=== PATIENT | male | born 1940 | race Caucasian/White ===

== ENCOUNTER → 2023-11-07 14:12 | Outpatient (REF) | payer MEDICARE, BC, SELFPAY | LOC: HWRCS 14:12 | PROVIDERS: ATTENDING PHYSICIAN Internal Medicine Cardiovascular Disease; FAMILY PHYSICIAN Family Medicine | DX: I35.0 Nonrheumatic aortic (valve) stenosis (principal) | CPT/HCPCS: 93306 ==

== ENCOUNTER → 2023-12-18 13:48 | Outpatient (REF) | payer MEDICARE, BC, SELFPAY | LOC: HWRAD 13:48 | PROVIDERS: ATTENDING PHYSICIAN Family Medicine | DX: Z86.73 Personal history of transient ischemic attack (TIA), and cerebral infarction without residual deficits (principal); M72.2 Plantar fascial fibromatosis; H55.00 Unspecified nystagmus | CPT/HCPCS: 70496; 70498; Q9967 ==

== ENCOUNTER → 2024-05-22 10:21 | Day surgery (SDC) | payer MEDICARE, BC, SELFPAY ==
[2024-05-22 11:39] LABS: Hematocrit 45.8 % (39.0-52.0); Hemoglobin 15.5 g/dL (13.0-18.0); Mean Corp Hgb Conc. 33.8 g/dL (33.0-37.0); Mean Corpuscular Hgb 31.1 pg (27.0-31.0); Mean Platelet Volume 10.4 fL (7.4-10.4); Platelet Count 160 10^3/uL (130-400); Red Blood Cell Count 4.98 10^6/uL (4.70-6.10); Red Cell Dist. Width 13.5 % (11.5-14.5); White Blood Cell Count 6.8 10^3/uL (4.8-10.8)
[2024-05-22 12:38] LABS: Blood Urea Nitrogen 23 mg/dl (9-20); Calcium 9.7 mg/dl (8.4-10.2); Carbon Dioxide 30 mmol/L (22-30); Chloride 99 mmol/L (98-107); Glucose 91 mg/dl (70-99); Potassium 4.5 mmol/L (3.5-5.1); Sodium 140 mmol/L (135-145); eGFR > 60.00
== END ==
LOC: SDSPAT 10:21
PROVIDERS: ATTENDING PHYSICIAN Specialist; FAMILY PHYSICIAN Family Medicine
DX: Z01.812 Encounter for preprocedural laboratory examination (principal)
CPT/HCPCS: 85027; 36415; 80048

== ENCOUNTER 2024-05-30 06:05 | Day surgery (SDC) | payer MEDICARE, BC, SELFPAY ==
[2024-05-22 11:16] VITALS: BMI 31.3
[2024-05-30] VITALS (12 sets, daily range): BP systolic 125–183; BP diastolic 57–96; BMI 31.3
[2024-05-30] MEDS: CYSVIEW KIT 100 MG INTRAVES (06:12)
[2024-05-30] MEDS: SYRINGE NON-PUMP 50 ML IRRIG ×2 (08:45→08:46)
[2024-05-30] MEDS: SYRINGE NON-PUMP 50 MG IRRIG ×2 (08:45→08:46)
[2024-05-30] MEDS: DILAUDID 0.25 MG IV (09:31)
--- NOTE | 2024-05-30 11:18 | PTCARENOTE ---
Patient did not want help getting dressed. He refused assistance and wanted to stand on his own. Patient voided on the floor when arriving when he stood to get OOB. Patient then urinated into the urinal blood/pink tinged urine. Patient cleaned up
and then he dressed.
== END 2024-05-30 11:15 | disposition home or self-care (01) ==
LOC: SDS 06:05
PROVIDERS: ATTENDING PHYSICIAN Specialist
DX: C67.9 Malignant neoplasm of bladder, unspecified (principal)
CPT/HCPCS: 52235; C9738; 88307; J1580; J9201

== ENCOUNTER 2024-05-31 04:29 | Observation (INO) | payer MEDICARE, BC, SELFPAY ==
[2024-05-30 21:33] VITALS: BP 192/92
--- NOTE | 2024-05-30 23:03 | ED.GENMED ---
History of Present Illness
General
Chief Complaint: Urinary Symptoms
Source: patient
Exam Limitations: none
Time Seen by Provider: 05/30/24 22:49
History of Present Illness
History of Present Illness:
This is a 83 year old male that comes in with c/o not being able to void. States that he had a TURP today and he was discharged around 11:30am. States that they had trouble getting the catheter out as they felt it was blocked by a clot. States that
he went home and he was urinating and passing clots. States that before he came in he was unable to urinate and nothing came out. States that he has been drinking fluid. States that he has abd pain and urinary burning. Denies any fever, chills,
chest pain, SOB, nausea, vomiting, diarrhea, headache, dizziness.
Past History
Past History
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
ED Past Surgical History: Appendectomy, Orthopedic (Right and left knee surgery. Laminectomy, ), Tonsilectomy, Urological (TURP, Radical prostatectomy) and Other (Hernia repair Umbilical and inguinal, cataract surgery, )
Social History
Tobacco: Former smoker
Alcohol: None
Drug: None
Personal:
Living: alone
Review of Systems
Review of Systems
All Other Systems: ROS reviewed and negative except as documented in HPI and ROS
Constitutional: Reports no symptoms; Denies fever or chills
EENT: Reports no symptoms
Respiratory: Reports no symptoms; Denies cough or trouble breathing
Cardiac: Reports no symptoms; Denies chest pain
ABD/GI: Reports abdominal pain (Lower abd); Denies nausea, vomiting or diarrhea
: Reports dysuria, difficulty voiding and other (Bladder spasm)
Musculoskeletal: Reports no symptoms
Skin: Reports no symptoms
Neurological: Reports no symptoms; Denies dizzy or headache
Psychiatric: Reports no symptoms
Phy Exam
General Physical Exam
General Presentation: mild distress
General age: appears stated age
General Skin: warm and dry
General Habitus: elderly
General Mental: alert
General Hydration: appears well hydrated
ENT Exam
ENT Exam: pharynx normal and neck supple
Eye Exam
Eye Exam: EOMI
Cardiovascular Exam
Cardiovascular Exam: regular rate/rhythm, no edema, normal peripheral pulses and other (Murmur)
Pulmonary Exam
Pulmonary Exam: lungs clear, no respiratory distress, no rales, chest non tender, no crackles, no rhonchi, no wheezing and no cough
Gastrointestinal Exam
Gastrointestinal Exam: normal bowel sounds, soft, no organomegaly, no pulsatile mass, non distended and tender (Lower abd tenderness with palpation)
Musculoskeletal Exam
Musculoskeletal Exam: full ROM and no edema
Skin Exam
Skin Exam: normal color, warm/dry, no rash and no petechia
Psychiatric Exam
Psychiatric Exam: normal mood/affect
Course
Orders/Labs/Results
Orders:
Orders
05/30/24 23:02
Catheter [Dickinson Placement- Treatment] ONCE
Reason for insertion: Outlet obstruction
05/30/24 23:05
Acetaminophen [Tylenol] 1,000 mg PO NOW STA
Phenazopyridine HCl [Pyridium] 200 mg PO NOW STA
05/30/24 23:54
Complete Blood Count/With Diff Urgent
Comprehensive Metabolic Panel Urgent
Urinalysis Reflex To Culture Urgent
Date Specimen was Collected: 05/30/24
Time Specimen was Collected: 23:47
Urine Microscopic Reflex Cult Urgent
05/31/24 00:47
0.9% Sodium Chloride 1000 ml [Nss] 1,000 ml IV BOLUS
05/31/24 01:59
CBI- Treatment PRN
Solution: NSs
Irrigate to Clear?: Yes
05/31/24 02:04
Consult Urology [UROLOGY CONSULT] Urgent
Consulting Provider: Pedro Lord
Was physician already notified: Yes
Abnormal Lab Results
05/30/24
23:54
Absolute Neuts (auto) 8.3 H 10^3/uL
(1.4-6.5)
Absolute Lymphs (auto) 1.0 L 10^3/uL
(1.2-3.4)
Absolute Monos (auto) 0.8 H 10^3/uL
(0.1-0.6)
Neutrophils % 81.8 H %
(42.2-75.2)
Lymphocytes % 9.5 L %
(20.5-51.1)
Sodium 130 L mmol/L
(135-145)
Chloride 95 L mmol/L
(98-107)
BUN 27 H mg/dl
(9-20)
Glucose 117 H mg/dl
(70-99)
Ur Occult Blood Reflex 4+ A
(Negative)
Leukocyte Esterase Rfl Trace A
(Negative)
Urine RBC >100 A /HPF
(0-2)
Urine Bacteria (Reflex) Few A
(Negative)
Urine Albumin (Reflex) 3+ A
(Neg - Trace)
05/30/24 23:54
05/30/24 23:54
Slight Hyponatremia, chloride low. dehydration. Glucose nonfasting, Urine negative for infection.
Vital Signs
Initial and Last Documented VS:
Initial Vital Signs
Temp Pulse Resp BP Pulse Ox
98.2 F 91 20 192/92 97
05/30/24 21:33 05/30/24 21:33 05/30/24 21:33 05/30/24 21:33 05/30/24 21:33
Last Documented Vital Signs
Temp Pulse Resp BP Pulse Ox
98.2 F 91 20 146/86 99
05/30/24 21:33 05/31/24 01:07 05/31/24 01:07 05/31/24 01:07 05/31/24 01:07
MDM/Problems Addressed
Differential Diagnosis Includes:
Urinary retention, UTI, Hematuria
MDM/Problems Addressed:
This is a 83 year old male that comes in with c/o not being able to urinate. States that he had a TURP today and they had difficulty getting the catheter out. States that they felt it was from a blood clot. Patient was urinating at home and then the
past 2 times has not been able to urinate at all.
Will place Three way catheter and check urine and labs.
Back into see patient. Patient has andrei blood in catheter. Will start on CBI and admit patient. Will place Urologist Consult. Hospitalist notified.
Chronic conditions affecting care: Cancer (Prostate Cancer)
Acute Exacerbation and/or Progression of Chronic Illness: Cancer (Prostate cancer)
*Pulse Oximetry
Patient hypoxic: no
*EKG
Interpreted by ED Provider?: NA
Rate: EKG- N/A
*Manager Client Interpretation
Rate: Manager Client- N/A
*Critical Care Note
Total Time (30-74mins, 75-104mins- exclusive of procedures): Not Applicable
ED Attending Note
-
Portions of this chart may have been created with voice recognition software.� Occasional wrong word or��sound alike� substitutions may have occurred due to the inherent limitations of voice recognition software.
Discharge Plan
Departure
Patient Disposition: Admit
Date of Disposition: 05/31/24
Time of Disposition: 02:05
Admit to: Med/Surg
Presentation/result/management discussed w/ accepting MD/DO: Hospitalist
Patient with high blood pressure during this ER visit?: Yes
Condition: Good
Covid-19: Not Applicable
Discharge Problem:
Hematuria
Prescriptions:
No Action
multivitamin 1 EACH tablet
4 ea PO DAILY
L.acidoph, paracasei,B. lactis 1 EACH capsule
1 ea PO DAILY
Rx Instructions:
70 billion
Cholest Off Plus
900 mg PO DAILY
Curcumin
500 mg PO QTUTHSU
Elderberry Fruit and Flower
3.8 g PO DAILY
Lycopene
10 mg PO HS
[place] Eye Support
64 mg PO DAILY
zinc 15 MG tablet
1 tab PO HS
Patient Comments:
with seliumn
cod liver oil 1 EACH capsule
2 ea PO HS
K2 Plus D3 1 EACH tablet
5 ea PO DAILY
Rx Instructions:
D3- 1000 units, K2-45mcg
Chlorella
970 mg PO HS
Full Spectum Enzyme
1 tab PO HS
Purple Defence
450 mg PO DAILY
Ubiquinol
100 mg PO HS
sennosides [senna] 8.6 mg Tablet
17.2 mg PO DAILY PRN (Reason: constipation)
vitamin B complex Tablet
1 tab PO DAILY
betamethasone dipropionate 0.05 % Ointment
1 applic TOPICAL PRN PRN (Reason: eczema chest, arms, back)
docusate sodium 100 mg Tablet
200 mg PO PRN PRN (Reason: constipation)
krill oil 500 mg Capsule
1,000 mg PO DAILY
[place] 3-6-9 1,200 mg Capsule
1 cap PO HS
Eye Support
1 tab PO HS
Seven Joint Support
1 tab PO HS
collagen
40 mg PO HS
glucosamine-chondroitin
3,000 mg PO DAILY
polyethylene glycol 3350 [Miralax] 17 gram/dose powder
4 g PO DAILY PRN (Reason: Constipation) Qty: 119 0RF
triamcinolone acetonide 0.1 % Cream
1 applic TOPICAL DAILY
aspirin 81 mg Tablet,Chewable
81 mg PO DAILY
lisinopril 5 mg Tablet
5 mg PO HS
Patient Comments:
3 days per week
lisinopril 2.5 mg Tablet
2.5 mg PO HS
Patient Comments:
4days per week
cholecalciferol (vitamin D3) [Vitamin D3] 25 mcg (1,000 unit) Capsule
25 mcg PO HS
rosuvastatin 20 mg Tablet
20 mg PO DAILY
magnesium L-threonate 48 mg magnesium (667 mg) Capsule
1 mg PO DAILY
Bosweilla
125 mg PO HS
Referrals:
UNKNOWN - PT DOES,NOT KNOW [Family Provider] -
Interventions
Interventions:
*Risk Screen - Suicide Last Done: 05/30/24 21:33
*General Assessment Last Done: 05/30/24 21:33
*Neglect/Abuse Screening Last Done: 05/31/24 00:32
*ED COVID-19 Vaccine History Last Done: 05/30/24 21:33
ED-Male Genitourinary Assessment Last Done: 05/31/24 00:32
Discharge Date and Time
Print Language: CROATIAN
[2024-05-30] MEDS: Pyridium 200 MG PO (23:14)
[2024-05-30] MEDS: TYLENOL 1000 MG PO (23:16)
[2024-05-31 00:08] LABS: % Basophils 0.3 % (0-2); % Eosinophils 0.1 % (0-6); % Immature Granulocytes 0.2 % (0-0.5); % Lymphocytes 9.5 % (20.5-51.1); % Monocytes 8.1 % (1.7-9.3); % Neutrophils 81.8 % (42.2-75.2); Absolute Monocytes 0.8 10^3/uL (0.1-0.6); Absolute Neutrophils 8.3 10^3/uL (1.4-6.5); Hematocrit 42.3 % (39.0-52.0); Hemoglobin 14.6 g/dL (13.0-18.0); Mean Corp Hgb Conc. 34.5 g/dL (33.0-37.0); Mean Corpuscular Hgb 30.7 pg (27.0-31.0); Mean Corpuscular Volume 88.9 fL (80.0-94.0); Mean Platelet Volume 9.7 fL (7.4-10.4); Nucleated Red Blood Cells % 0 % (-); Platelet Count 173 10^3/uL (130-400); Red Blood Cell Count 4.76 10^6/uL (4.70-6.10); Red Cell Dist. Width 13.2 % (11.5-14.5); White Blood Cell Count 10.2 10^3/uL (4.8-10.8)
[2024-05-31 00:31] LABS: ALT (SGPT) 22 U/L (0-50); AST (SGOT) 31 U/L (17-59); Alkaline Phosphatase 59 U/L (38-126); Blood Urea Nitrogen 27 mg/dl (9-20); Calcium 9.1 mg/dl (8.4-10.2); Carbon Dioxide 24 mmol/L (22-30); Chloride 95 mmol/L (98-107); Glucose 117 mg/dl (70-99); Potassium 4.7 mmol/L (3.5-5.1); Sodium 130 mmol/L (135-145); Total Bilirubin 0.5 mg/dl (0.2-1.3); Total Protein 6.5 g/dl (6.3-8.2); eGFR > 60.00
[2024-05-31 00:50] LABS: Urine Albumin 3+ (Neg - Trace); Urine Bilirubin Negative (Negative); Urine Character Very Cloudy (Clear); Urine Color Red; Urine Glucose Negative (Negative); Urine Ketone Negative (Negative); Urine Leukocyte Trace (Negative); Urine Nitrite Negative (Negative); Urine Occult Blood 4+ (Negative); Urine Urobilinogen Negative (Neg - 1+); Urine pH 6.5 (5.0-9.0)
[2024-05-31] MEDS: NSS 1000 IV (01:05)
[2024-05-31 01:07] VITALS: BP 146/86
[2024-05-31 02:20] LABS: Urine Bacteria Few (Negative); Urine Red Blood Cell >100 /HPF (0-2)
[2024-05-31 03:27] VITALS: BP 161/78
--- NOTE | 2024-05-31 04:37 | HPS.HSE ---
Family Physician
-
Family Physician: NOT KNOW UNKNOWN - PT DOES
Chief Complaint
-
Urinary hesitancy and gross hematuria
History of Present Illness
This is an 83-year-old who has a past medical history significant for prostate cancer many years ago status post TURP, history of remote recent diagnosis of bladder cancer status post TURBT last year and recent cystoscopy resulting in another TURBT
yesterday now presenting to the emergency department with hesitancy and hematuria after the TURBT.
Patient had the procedure done in the morning. At the end of procedure he reported that there was difficulty with extraction of the maite with apparent clot in the way. Ultimately the Dixon was extracted and patient was discharged to home. He
initially was able to urinate on his own but noted that he passed some clots. Thereafter he reported that he started having more urgency without actually passing urine. He then developed severe low pelvic and urethral pain which brought him to the
emergency department. He denied having any fevers or chills nausea vomiting or diaphoresis.
In the emergency department he attempted to urinate and felt like there was clot in the way. He was noted to have hematuria and a urinary cath was placed with CBI. With manual flushing clot was extracted and the patient pain resolved almost
immediately. When I saw the patient he was pain-free and passing clear urine via the CBI.
He was afebrile, blood pressure was 161/78 with normal pulse. Sodium was 130 with the rest of the chemistries unremarkable. CBC was unremarkable. UA with hematuria and some pyuria.
Medical History
Past Medical History
Past Medical History: Reports Cancer (Prostate cancer status post TURP, bladder cancer status post TURBT x 2), HTN and Hypercholesterolemia
Past Surgical History: Reports Urological and Other (Hernia repair)
Social History
Tobacco: Non-smoker
Alcohol: None
Drug: None
Personal: Single
Living: With Family
Employment: Retired
Family History
Family History: Not pertinent
Allergies / Home Medications
Allergies reflects when Allergies were last updated in [facility].
Home Medications with original date entered in [facility]
Allergy/Medication List:
Allergies
Allergy/AdvReac Type Severity Reaction Status Date / Time
adhesive tape Allergy takes skin Verified 05/30/24 21:33
off
budesonide Allergy elevated Verified 05/30/24 21:33
eosinophils
cephalexin Allergy Rash Verified 05/30/24:
clindamycin Allergy elevated Verified 05/30/24:33
eosinophils
clobetasol Allergy Rash Verified 05/30/24:33
desonide Allergy elevated Verified 05/30/24:
eosinophils
latex Allergy Rash Verified 05/30/24:33
levofloxacin Allergy Swelling Verified 05/30/24:33
levothyroxine sodium Allergy dizzy, Verified 05/30/24:33
[From Synthroid] blurred
vision and
low urine
output
losartan Allergy Shortness Verified 05/30/24 21:33
of Breath
minocycline Allergy elevated Verified 05/30/24:33
eosinophils
pesticide Allergy Rash Verified 05/30/24:33
prednisone Allergy dizziness Verified 05/30/24:33
and
lightheaded
rubber, unspecified Allergy Rash Verified 05/30/24:33
silver Allergy Blisters Verified 05/30/24:33
[From Tegaderm AG Mesh]
sulfamethoxazole Allergy neck Verified 05/30/24 21:33
[From Bactrim] stiffness
tramadol Allergy finger Verified 05/30/24 21:33
blistering,
itching
trimethoprim [From Bactrim] Allergy neck Verified 05/30/24 21:33
stiffness
flucocinonise Allergy elevated Uncoded 05/30/24 21:33
eosinophils
Home Medications
Chlorella 970 mg PO HS 10/03/21
Cholest Off Plus 900 mg PO DAILY 10/03/21
Curcumin 500 mg PO QTUTHSU 10/03/21
Elderberry Fruit and Flower 3.8 g PO DAILY 10/03/21
Full Spectum Enzyme 1 tab PO HS 10/03/21
L.acidoph, paracasei,B. lactis 10 billion cell capsule 1 ea PO DAILY 10/03/21
Lycopene 10 mg PO HS 10/03/21
Mercola Eye Support 64 mg PO DAILY 10/03/21
Purple Defence 450 mg PO DAILY 10/03/21
Ubiquinol 100 mg PO HS 10/03/21
cholecalciferol (vit D3) 1,000 unit-vitamin K2 (MK4) 100 mcg tablet (K2 Plus D3) 5 ea PO DAILY 10/03/21
multivitamin 4 ea PO DAILY 10/03/21
omega-3 240 [id number]-moj-cod liver oil 1,000 mg-vit A-vit D3 capsule (cod liver oil) 2 ea PO HS 10/03/21
zinc 15 mg tablet 1 tab PO HS 10/03/21
Eye Support 1 tab PO HS 05/01/23
Seven Joint Support 1 tab PO HS 05/01/23
betamethasone dipropionate 0.05 % topical ointment 1 applic topical PRN PRN eczema chest, arms, back 05/01/23
collagen 40 mg PO HS 05/01/23
docusate sodium 100 mg tablet 200 mg PO PRN PRN constipation 05/01/23
fish, borage, flaxseed oils-omega 3,6,9 comb no.1 1,200 mg capsule ([place] 3-6-9) 1 cap PO HS 05/01/23
glucosamine-chondroitin 3,000 mg PO DAILY 05/01/23
krill oil 500 mg capsule 1,000 mg PO DAILY 05/01/23
sennosides 8.6 mg tablet (senna) 17.2 mg PO DAILY PRN constipation 05/01/23
vitamin B complex 1 tab PO DAILY 05/01/23
polyethylene glycol 3350 17 gram/dose oral powder (Miralax) 4 g PO DAILY PRN Constipation #119 grams 05/04/23
Bosweilla 125 mg PO HS 05/26/24
aspirin 81 mg chewable tablet 81 mg PO DAILY 05/26/24
cholecalciferol (vitamin D3) 25 mcg (1,000 unit) capsule (Vitamin D3) 25 mcg PO HS 05/26/24
lisinopril 2.5 mg tablet 2.5 mg PO HS 05/26/24
lisinopril 5 mg tablet 5 mg PO HS 05/26/24
magnesium L-threonate 48 mg magnesium (667 mg) capsule 1 mg PO DAILY 05/26/24
rosuvastatin 20 mg tablet 20 mg PO DAILY 05/26/24
triamcinolone acetonide 0.1 % topical cream 1 applic topical DAILY 05/26/24
Review of Systems
-
History Source: Patient
Constitutional: Reports No Symptoms
EENT: Reports No Symptoms
Respiratory: Reports No Symptoms
Cardiac: Reports No Symptoms
Abdomen/GI: Reports No Symptoms
: Reports Urgency and Bleeding
Musculoskeletal: Reports No Symptoms
Skin: Reports No Symptoms
Neurological: Reports No Symptoms
Endocrine: Reports No Symptoms
Hematologic/Lymphatic: Reports No Symptoms
Psych: Reports No Symptoms
Physical Exam
Vital Signs
Vital Signs
Temp Pulse Resp BP Pulse Ox
97.5 F 68 16 161/78 94
05/31/24 03:27 05/31/24 03:27 05/31/24 03:27 05/31/24 03:27 05/31/24 03:27
Physical Exam
General: Well Developed, Well Nourished, Comfortable and Conversant
HEENT: NormoCephalic, Anicteric, Moist mucous membranes and Atraumatic
Respiratory: Clear
Cardiac: S1/S2 and Regular Rhythm
Breast: Deferred by me
GI: Soft, Non Tender, Non Distended and Normal Bowel Sounds
Rectal: Deferred by Provider
Genito-urinary: Clear Urine and Continuous Bladder Irrigation
Musculoskeletal: No Clubbing, No Cyanosis and No Edema
Skin: Warm
Neuro: AO x 3
Hematologic/Lymphatic: No Lymphadenopathy
Psych: Calm
Laboratory Results
-
05/30/24 23:54
05/30/24 23:54
Laboratory Results
Total Bilirubin 0.5 mg/dl (0.2-1.3) 05/30/24 23:54
AST 31 U/L (17-59) 05/30/24 23:54
ALT 22 U/L (0-50) 05/30/24 23:54
Alkaline Phosphatase 59 U/L (38-126) 05/30/24 23:54
Data Reviewed
-
Lab Data: Labs Reviewed by me
Old Records: Reviewed
Impression/Plan
-
IMPRESSION:
83 Male with prostate Ca s/p TURBT yesterday developed hematuria with clots and transient urinary obstruction. Now appears cleared after dixon insertion, flushing and CBI. The output from the bladder is now clear (colored by pyridium). Patient
comfortable.
PLAN:
1. Hematuria - Post-procedural now cleared. No thinners.
- admit to medsurg/obs
- urology consult and CBI can be discontinued and voiding trial attempted today
- no signs of infection, no abx for now
- can continue home aaspirin.
- regular diet
2. HTN
- continue lisinopril
- continue statin
DVT PPX - SCDs for now
Code status - full code
[2024-05-31] MEDS: ZESTRIL 5 MG PO (04:45)
[2024-05-31 05:38] VITALS: BP 151/70
[2024-05-31 06:12] VITALS: BP 171/85
[2024-05-31 06:13] VITALS: BMI 32.0
[2024-05-31 07:15] VITALS: BP 153/78
--- NOTE | 2024-05-31 07:44 | W.PN.UPDATE ---
Update Note
Progress Note Update
83-year-old male who has a past medical history significant for prostate cancer many years ago status post TURP, history of remote recent diagnosis of bladder cancer status post TURBT last year and recent cystoscopy resulting in another TURBT
yesterday who was admitted with urinary retention and hematuria after the TURBT.
Appreciate urology input, hematuria resolved status post CBI. He is medically stable and cleared by urology for discharge with his Dickinson. Follow-up with urology in the office for void trial.
[2024-05-31 08:13] LABS: Blood Urea Nitrogen 21 mg/dl (9-20); Calcium 8.7 mg/dl (8.4-10.2); Carbon Dioxide 24 mmol/L (22-30); Chloride 100 mmol/L (98-107); Estimated Creatinine Clearance 62 ml/min; Glucose 97 mg/dl (70-99); Potassium 4.2 mmol/L (3.5-5.1); Sodium 136 mmol/L (135-145); eGFR > 60.00
[2024-05-31 08:22] LABS: Hematocrit 41.3 % (39.0-52.0); Hemoglobin 13.8 g/dL (13.0-18.0); Mean Corp Hgb Conc. 33.4 g/dL (33.0-37.0); Mean Corpuscular Hgb 30.7 pg (27.0-31.0); Mean Corpuscular Volume 91.8 fL (80.0-94.0); Mean Platelet Volume 10.3 fL (7.4-10.4); Platelet Count 159 10^3/uL (130-400); Red Cell Dist. Width 13.4 % (11.5-14.5); White Blood Cell Count 8.8 10^3/uL (4.8-10.8)
[2024-05-31] MEDS: LOW STRENGTH ASPIRIN 81 MG PO (08:28)
[2024-05-31] MEDS: CRESTOR 20 MG PO (08:30)
--- NOTE | 2024-05-31 09:05 | PTCARENOTE ---
Dr. Lord at bedside and ordered to discontinue CBI. This nurse capped CBI as ordered per Dr. Lord. Dickinson catheter care and Leg bag teaching given to pt. and daughter.
[2024-05-31 09:15] VITALS: BP 138/70
--- NOTE | 2024-05-31 09:25 | W.PN.URO.CBU ---
Today's Communication / Plan
-
pleae teach pt and family leg bag dixon care
Assessment / Plan
-
pos yop hematuruia retention will leave dixon d/c when medically stable voiding trial as outpatient
Diagnosis
-
Date of Service: May 31, 2024
-
Patient Diagnosis:post op pain retention hematuri a clots
Post Op Day:
Subjective
-
much beytter no bleeding
Objective
-
Vital Signs
Temp Pulse Resp BP Pulse Ox
98.4 F 61 20 138/70 95
05/31/24 07:15 05/31/24 07:15 05/31/24 07:15 05/31/24 09:15 05/31/24 07:15
Intake and Output
05/30/24 05/31/24 06/01/24
06:59 06:59 06:59
Output Total 900 / 900
Balance -900 / -900
Output:
True Urine Output from CBI 900 / 900
Laboratory Results
05/31/24 08:05
05/31/24 07:14
Review of Systems
-
: Difficulty Voiding
Physical Exam
-
General - well developed, well nourished, no acute distress
Chest - clear bilaterally
Abdomen - soft, non-tender, positive bowel sounds, no CVAT, no incisional pain or distention
Genitalia - normal
Rectal - normal
Skin - warm & dry with no rash
Neuro - AOx3, no motor deficits
Extremities - no clubbing, no cyanosis, no edema
Incision - clean, dry
Dressing - clean, dry, intact
Care Review
Data Reviewed
Discussed with: Nursing and Family
--- NOTE | 2024-05-31 10:23 | W.DCSUMMARY ---
Discharge Summary
Discharge Data
Date of Admission: 05/31/24
Date of Discharge: 05/31/24
-
Pending Results: No
Hospital Course
Discharge diagnosis:
Postoperative urinary retention
Postoperative hematuria
Transurethral resection of bladder tumor 05/30/2024
Bladder cancer status post transurethral resection of bladder tumor x 2
Essential hypertension
Hyperlipidemia
History of prostate cancer
Hospital course:
83-year-old male with a past medical history of prostate cancer status post TURP, HTN, HL, bladder cancer status post TURBT, and repeat TURBT 05/30/2024 who was placed in observation for postoperative urinary retention and hematuria. He had a Dixon
inserted, and was treated with CBI. He was seen in conjunction with urology. His hematuria resolved. Patient is medically stable and cleared by urology for discharge. Urology recommends he be discharged with his Dixon. He needs to follow-up
with urology in the office for a void trial. He also needs to follow-up with his PCP in 1 week.
Disposition: Home self-care
Discharge planning: Required 39 minutes
Discharge Plan
-
Patient Disposition: Home (Routine Discharge)
Discharge Diagnosis/Procedures: Postoperative urinary retention, hematuria, pain, hypertension
Condition: Fair
Diet: Low Fat and Low Cholesterol
Activity: As tolerated
Driving Restrictions: As prior to admission
Activity Restrictions/Additional Instructions:
Maintain Dixon upon discharge.
Call urology at [phone] mon am to arrange dixon removal, increase fluids, expect some blood in and around dixon. Call if blocks up.
Follow-up with your primary care doctor in 1 week.
Referrals:
Pedro Lord MD [Active] - (call dr lord or jose [phone] mon am to arrange dixon removal increase fluids expect some blood in and around dixon call if blocks up)
UNKNOWN - PT DOES,NOT KNOW [Family Provider] -
Prescriptions:
Continued
multivitamin 1 EACH tablet
4 ea PO DAILY
L.acidoph, paracasei,B. lactis 1 EACH capsule
1 ea PO DAILY
Rx Instructions:
70 billion
Cholest Off Plus
900 mg PO DAILY
Curcumin
500 mg PO QTUTHSU
Elderberry Fruit and Flower
3.8 g PO DAILY
Lycopene
10 mg PO HS
Mercola Eye Support
64 mg PO DAILY
zinc 15 MG tablet
1 tab PO HS
Patient Comments:
with seliumn
cod liver oil 1 EACH capsule
2 ea PO HS
K2 Plus D3 1 EACH tablet
5 ea PO DAILY
Rx Instructions:
D3- 1000 units, K2-45mcg
Chlorella
970 mg PO HS
Full Spectum Enzyme
1 tab PO HS
Purple Defence
450 mg PO DAILY
Ubiquinol
100 mg PO HS
sennosides [senna] 8.6 mg Tablet
17.2 mg PO DAILY PRN (Reason: constipation)
vitamin B complex Tablet
1 tab PO DAILY
betamethasone dipropionate 0.05 % Ointment
1 applic TOPICAL PRN PRN (Reason: eczema chest, arms, back)
docusate sodium 100 mg Tablet
200 mg PO PRN PRN (Reason: constipation)
krill oil 500 mg Capsule
1,000 mg PO DAILY
[place] 3-6-9 1,200 mg Capsule
1 cap PO HS
Eye Support
1 tab PO HS
Seven Joint Support
1 tab PO HS
collagen
40 mg PO HS
glucosamine-chondroitin
3,000 mg PO DAILY
polyethylene glycol 3350 [Miralax] 17 gram/dose powder
4 g PO DAILY PRN (Reason: Constipation) Qty: 119 0RF
triamcinolone acetonide 0.1 % Cream
1 applic TOPICAL DAILY
aspirin 81 mg Tablet,Chewable
81 mg PO DAILY
lisinopril 5 mg Tablet
5 mg PO HS
Patient Comments:
3 days per week
lisinopril 2.5 mg Tablet
2.5 mg PO HS
Patient Comments:
4days per week
cholecalciferol (vitamin D3) [Vitamin D3] 25 mcg (1,000 unit) Capsule
25 mcg PO HS
rosuvastatin 20 mg Tablet
20 mg PO DAILY
magnesium L-threonate 48 mg magnesium (667 mg) Capsule
1 mg PO DAILY
Bosweilla
125 mg PO HS
Discharge Orders:
Discharge Patient (As Directed); Ordered 05/31/24
Ordered By: Manas Saldivar
Discharge Date and Time
Discharge Date/Time: 05/31/24 11:41
Print Language: FINNISH
--- NOTE | 2024-05-31 10:33 | CM ---
Alert awake oriented patient who lives alone in a 1 story home with 2 step to enter. He is independent in driving and in all activities of daily living.He was offered VN he declined need.He has a Dickinson cath and has had a Dickinson in past . He said he
knows how to care for Dickinson at home . Urology appt set up already.Delisa dgt here will drive him home.
DH VN hx / No SNF history
Pharmacy [facility]
PCP DR Randall
PLAN Home Declined VN
== END 2024-05-31 11:41 | disposition home or self-care (01) ==
LOC: 4 EAST ACU 04:29
PROVIDERS: Clinical Nurse Specialist Family Health; ADMITTING PHYSICIAN Internal Medicine; ATTENDING PHYSICIAN Family Medicine; CONSULT PHYSICIAN Specialist; EMERGENCY PHYSICIAN Student in an Organized Health Care Education/Training Program
DX: R33.9 Retention of urine, unspecified (principal); R31.0 Gross hematuria; G89.18 Other acute postprocedural pain; R39.11 Hesitancy of micturition; R10.2 Pelvic and perineal pain; E86.0 Dehydration; E78.00 Pure hypercholesterolemia, unspecified; I10 Essential (primary) hypertension; G47.30 Sleep apnea, unspecified; E03.9 Hypothyroidism, unspecified; F41.9 Anxiety disorder, unspecified; M54.9 Dorsalgia, unspecified; E87.1 Hypo-osmolality and hyponatremia; Z87.891 Personal history of nicotine dependence; Z85.828 Personal history of other malignant neoplasm of skin; Z86.73 Personal history of transient ischemic attack (TIA), and cerebral infarction without residual deficits; Z85.46 Personal history of malignant neoplasm of prostate; Z90.79 Acquired absence of other genital organ(s); Z85.51 Personal history of malignant neoplasm of bladder; Z88.1 Allergy status to other antibiotic agents; Z91.040 Latex allergy status; Z88.2 Allergy status to sulfonamides; Z88.8 Allergy status to other drugs, medicaments and biological substances; Z91.048 Other nonmedicinal substance allergy status; Z79.82 Long term (current) use of aspirin; Z60.2 Problems related to living alone
CPT/HCPCS: 51702; 80048; 80053; 81003; 81015; 85025; 85027; 99284

== ENCOUNTER → 2024-09-04 12:37 | Outpatient (REF) | payer MEDICARE, BC, SELFPAY | LOC: HWRAD 12:37 | PROVIDERS: ATTENDING PHYSICIAN Family Medicine | DX: M25.562 Pain in left knee (principal); M17.12 Unilateral primary osteoarthritis, left knee; M25.362 Other instability, left knee | CPT/HCPCS: 73564 ==

== ENCOUNTER → 2024-09-07 10:30 | Outpatient (REF) | payer MEDICARE, BC, SELFPAY | LOC: PAVMRI 10:30 | PROVIDERS: ATTENDING PHYSICIAN Family Medicine | DX: M25.562 Pain in left knee (principal); M17.12 Unilateral primary osteoarthritis, left knee; M25.362 Other instability, left knee | CPT/HCPCS: 73721 ==

== ENCOUNTER → 2024-10-29 10:10 | Outpatient (REF) | payer MEDICARE, BC, SELFPAY | LOC: SDSPAT 10:10 | PROVIDERS: ATTENDING PHYSICIAN Specialist; FAMILY PHYSICIAN Family Medicine | DX: C67.9 Malignant neoplasm of bladder, unspecified (principal) | CPT/HCPCS: 36415; 93005 ==

== ENCOUNTER 2024-10-31 06:11 | Day surgery (SDC) | payer MEDICARE, BC, SELFPAY ==
[2024-10-29 14:14] VITALS: BMI 30.6
[2024-10-31] VITALS (8 sets, daily range): BP systolic 131–195; BP diastolic 64–88; BMI 30.6
[2024-10-31] MEDS: CYSVIEW KIT 100 MG INTRAVES (09:14)
[2024-10-31] MEDS: NORMOSOL-R/PLASMALYTE-A 1000 IV (09:14)
== END 2024-10-31 11:30 | disposition home or self-care (01) ==
LOC: SDS 06:11
PROVIDERS: ATTENDING PHYSICIAN Specialist
DX: N32.89 Other specified disorders of bladder (principal); Z85.51 Personal history of malignant neoplasm of bladder; Z90.79 Acquired absence of other genital organ(s)
CPT/HCPCS: 52204; C9738; 88305; A9589; J1580

== ENCOUNTER → 2024-12-26 10:31 | Outpatient (REF) | payer MEDICARE, BC, SELFPAY | LOC: RAD 10:31 | PROVIDERS: ATTENDING PHYSICIAN Surgery Vascular Surgery; FAMILY PHYSICIAN Family Medicine | DX: I65.23 Occlusion and stenosis of bilateral carotid arteries (principal) | CPT/HCPCS: 93880 ==